=== PATIENT | male | born 1995 | race Caucasian/White ===

== ENCOUNTER → 2017-06-23 | Outpatient (CLI) | payer BC ==
[~2017-06-23] MED LIST: CATHETER FLUSH 10 ML SYR IV PRN; IOHEXOL 350 MG/ML 100 ML (OMNIPAQUE 350) VIAL IV ONE; NS 100 ML (IVPB) BAG IV ONE
--- NOTE | 2017-06-23 15:41 | Diagnostic Imaging Report ---
PROCEDURE: CT neck soft tissue with contrast. TECHNIQUE: Multiple contiguous axial images were obtained through the neck after the administration of contrast. INDICATION: Mass along the mandible on the right side. CONTRAST: 75 mL of Omnipaque 350 was administered intravenously. FINDINGS: There is a right parotid gland lobulated hypodense mass measuring 3.2 x 2 x 1.7 cm. It has low density which could relate to a cystic component. An ultrasound evaluation might help evaluate for such components. The mass appears to be centered in the superficial lobe with no significant extension into the deep lobe of the parotid. The left parotid gland appears unremarkable. The submandibular glands appear normal. The thyroid gland demonstrates very small hypodense lesions in the range of 1-3 mm which could represent tiny colloid cysts. There is unremarkable vascular enhancement in the jugular veins and carotid arteries. There is no suspicious mass in the mucosal pharyngeal space. There is, however, mild hypertrophy of the lymphoid tissue around the oropharynx and adenoids. The cervical chain demonstrates bilateral minimally enlarged lymph nodes at level II of the cervical chain measuring in short axis 1.3 on the left and 1 cm on the right side. These are nonspecific and could be reactive. The lung apices appear normal. The osseous structures and the visualized portions of the paranasal sinuses appear grossly unremarkable. IMPRESSION: A lobulated well defined 3.2 cm right parotid gland hypodense mass is seen. This could relate to a cystic neoplasm of the parotid gland. Correlation with a parotid ultrasound is recommended. Dictated by: Dictated on workstation # [id number]
== END ==
LOC: RAD 14:43
PROVIDERS: ATTEND Otolaryngology Otolaryngology/Facial Plastic Surgery
DX: K11.8 Other diseases of salivary glands (principal)
CPT/HCPCS: 70491

== ENCOUNTER → 2017-09-06 | Outpatient (CLI) | payer BC ==
[~2017-09-06] VITALS: Ht 180.3 cm; Wt 72.6 kg
[~2017-09-06] MED LIST changes: -CATHETER FLUSH 10 ML SYR IV PRN; +DEXT10TA9 PO; -IOHEXOL 350 MG/ML 100 ML (OMNIPAQUE 350) VIAL IV ONE; -NS 100 ML (IVPB) BAG IV ONE
== END ==
LOC: PREOP 09-03 05:40
PROVIDERS: ATTEND Otolaryngology Otolaryngology/Facial Plastic Surgery
DX: Z01.818 Encounter for other preprocedural examination (principal); R22.1 Localized swelling, mass and lump, neck

== ENCOUNTER 2017-09-10 08:46 | Day surgery (SDC) | payer BC ==
[~2017-09-10] VITALS: Ht 180.3 cm; Wt 72.6 kg
[2017-09-10] MEDS: LACTATED RINGERS 1,000 ML IV PRN ×2 (09:15→11:17)
[2017-09-10 09:20] LABS: BASOPHILS % (AUTO) 1 % (0-10); EOSINOPHILS # (AUTO) 0.1 10^3/uL (0.0-0.3); EOSINOPHILS % (AUTO) 2 % (0-10); HEMATOCRIT 46 % (40-54); HEMOGLOBIN 15.9 G/DL (13.3-17.7); LYMPHOCYTES # (AUTO) 2.8 X 10^3 (1.0-4.0); LYMPHOCYTES % (AUTO) 38 % (12-44); MEAN CORPUSCULAR HEMOGLOBIN 32 PG (25-34); MEAN CORPUSCULAR HGB CONC 35 G/DL (32-36); MEAN CORPUSCULAR VOLUME 92 FL (80-99); MEAN PLATELET VOLUME 11.5 FL (7.4-10.4); MONOCYTES # (AUTO) 0.7 X 10^3 (0.0-1.0); MONOCYTES % (AUTO) 9 % (0-12); NEUTROPHILS # (AUTO) 3.8 X 10^3 (1.8-7.8); NEUTROPHILS % (AUTO) 51 % (42-75); PLATELET COUNT 215 10^3/uL (130-400); RED BLOOD COUNT 4.96 10^6/uL (4.35-5.85); RED CELL DISTRIBUTION WIDTH 12.4 % (10.0-14.5); WHITE BLOOD COUNT 7.5 10^3/uL (4.3-11.0)
[2017-09-10 09:31] VITALS: BP 125/65
[2017-09-10 09:36] LABS: BUN/CREATININE RATIO 19; CALCIUM 9.2 MG/DL (8.5-10.1); CARBON DIOXIDE 23 MMOL/L (21-32); CHLORIDE 107 MMOL/L (98-107); CREATININE SERUM 0.88 MG/DL (0.60-1.30); GFR ESTIMATED > 60; GLUCOSE 90 MG/DL (70-105); POTASSIUM 4.6 MMOL/L (3.6-5.0); SODIUM 140 MMOL/L (135-145)
[2017-09-10] MEDS ORDERED: MIDAZOLAM 2 MG/2 ML (VERSED) VIAL IV ONE (10:00)
--- NOTE | 2017-09-10 10:01 | Progress Note-Pre Operative ---
Pre-Operative Progress Note H&P Reviewed The H&P was reviewed, patient examined and no changes noted. Date Seen by Provider: Sep 10, 2017 Time Seen by Provider: : Date H&P Reviewed: Sep 10, 2017 Time H&P Reviewed: : Pre-Operative Diagnosis: Right Parotid MAss THOMAS FRYE MD Sep 10, 2017 10:01 am
[2017-09-10] MEDS ORDERED: LIDOCAINE/EPI 1%-1:200,000 (XYLOCAINE) 10 ML VIAL ONE (10:16)
[2017-09-10] MEDS ORDERED: MUPIROCIN 2% OINT 22 GM (BACTROBAN) TUBE ONE (10:16)
[2017-09-10] MEDS ORDERED: BSS 15 ML ONE (10:16)
[2017-09-10] MEDS ORDERED: NEO/POLY/BACI (NEOSPORIN) OPHTH OINT 3.5 GM ONE (10:16)
[2017-09-10] MEDS ORDERED: DEXAMETHASONE 10 MG/ML (DECADRON) 1 ML VIAL ONE (10:26)
[2017-09-10] MEDS ORDERED: ONDANSETRON 4 MG/2 ML (SDV) Z0FRAN ONE (10:26)
[2017-09-10] MEDS ORDERED: fentaNYL INJECTION 100 MCG/2 ML AMP ONE ×2 (10:26→11:12)
[2017-09-10] MEDS ORDERED: LIDOCAINE PF 2% 5 ML (XYLOCAINE) VIAL ONE (10:26)
[2017-09-10] MEDS ORDERED: proPOfol 200 MG/20 ML (DIPRIVAN) VIAL IV ONE (10:26)
[2017-09-10] MEDS ORDERED: ROCURONIUM 50 MG/5 ML (ZEMURON) VIAL IV ONE (10:26)
[2017-09-10] MEDS ORDERED: MIDAZOLAM 2 MG/2 ML (VERSED) VIAL ONE (10:26)
[2017-09-10] MEDS ORDERED: LIDOCAINE JELLY 2% (XYLOCAINE) 5 ML TUBE ONE (10:31)
[2017-09-10] MEDS ORDERED: SEVOFLURANE (ULTANE) 15 ML INHAL SOLN ONE ×5 (10:31→12:51)
[2017-09-10] MEDS ORDERED: MEPERIDINE (DEMEROL) INJ 50 MG/ML ONE (12:59)
[2017-09-10] MEDS ORDERED: morphine INJ 10 MG/ML 1ML (SYR OR VIAL) ONE (12:59)
[2017-09-10] MEDS ORDERED: ACETAMINOPHEN 325 MG TABLET/CAPLET (TYLENOL) PO PRN (13:00)
[2017-09-10] MEDS ORDERED: D5 1/2 NS W/KCL 20 MEQ/L 1,000 ML IV SCH (13:00)
--- NOTE | 2017-09-10 13:00 | Progress Note-Post Operative ---
Post-Operative Progess Note Surgeon (s)/Chop Saw Operator (s) Surgeon THOMAS FRYE MD Chop Saw Operator n/a Pre-Operative Diagnosis Right Parotid MAss Post-Operative Diagnosis same Post-Op Procedure Note Date of Procedure: Sep 10, 2017 Name of Procedure Performed: Right Parotidectomy with Preservation of the FAcial NErve Description & Findings Description and Findings: n/a Anesthesia Type get Estimated Blood Loss minimal Packing none. Specimen(s) collected/removed right parotid [id number] adenoma THOMAS FRYE MD Sep 10, 2017 1:00 pm
[2017-09-10] MEDS ORDERED: ONDANSETRON 4 MG/2 ML (SDV) Z0FRAN IVP PRN ×2 (13:30→19:15)
[2017-09-10] MEDS ORDERED: HYDROmorphone (DILAUDID) 2 MG/ML VIAL IVP PRN (13:30)
[2017-09-10] MEDS: morphine INJ 10 MG/ML 1ML (SYR OR VIAL) IVP PRN ×2 (13:32→13:36)
[2017-09-10] MEDS: MEPERIDINE (DEMEROL) INJ 50 MG/ML IVP PRN ×2 (13:40→13:50)
[2017-09-10] MEDS: HYDROcodone/APAP 5 MG/325 MG (LORTAB) TAB PO PRN ×2 (15:42→19:57)
[2017-09-10 15:47] VITALS: BP 130/77
--- NOTE | 2017-09-10 16:29 | Progress Note-Standard ---
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
[2017-09-10] MEDS ORDERED: fentaNYL INJECTION 100 MCG/2 ML AMP IVP PRN (19:45)
[2017-09-10 20:00] VITALS: BP 136/66
[2017-09-11] MEDS: HYDROcodone/APAP 5 MG/325 MG (LORTAB) TAB PO PRN ×2 (00:02→05:40)
[2017-09-11 00:53] VITALS: BP 132/62
[2017-09-11 04:00] VITALS: BP 119/56
--- NOTE | 2017-09-11 06:27 | Progress Note-Standard ---
Standard Progress Note Progress Notes/Assess & Plan Date Seen by Provider: Sep 11, 2017 Time Seen by Provider: 06:30 Progress/Assessment & Plan ENT-Jake Doing well post-op mild discomfort Drain functioning-15cc in grenade at this time Face-minimal to naomi weakness of face all branches intact incision-flat and dry will observe tonight diet as adonis pain medicine written plan on drain out in am and t hen home RTC-wednesday for suture removal [id number]'ed Incision flat dry and intact FAcial movements normal will discharge after breakfast Discharge rprescriptions in chart RTC-next wednesday at 10 for suture removal Discahrge instructions reviewed. THOMAS FRYE MD Sep 11, 2017 6:27 am
[2017-09-11 08:00] VITALS: BP 117/58
[2017-09-11 09:30] VITALS: BP 117/58
--- NOTE | 2017-09-11 09:31 | Anesthesia-General Post-Op ---
General Patient Condition Mental Status/LOC: Same as Preop Cardiovascular: Satisfactory Nausea/Vomiting: Absent Respiratory: Satisfactory Pain: Controlled Complications: Absent Post Op Complications Complications None Follow Up Care/Instructions Patient Instructions None needed. Anesthesia/Patient Condition Patient Condition Patient is doing well, no complaints, stable vital signs, no apparent adverse anesthesia problems. No complications reported per nursing. Pt getting ready to be discharged to home. PARIS SHARIF CRNA Sep 11, 2017 09:31
--- OUTSIDE RECORDS SUMMARY | 2017-09-12 08:05 | XMS REPORT | Continuity of Care Document ---
Author Author [facility] Organization [facility] Address Unknown Phone Unavailable Allergies Active Description Code Type Severity Reaction Onset Reported/Identified Relationship to Patient Clinical Status Yes penicillins Drug N/A N/A Medications Medication Packaging Start Date Stop Date Route Dosage Sig ondansetron 09/03/2017 PO 8 mg / 1 tab Problems There is no data. Procedures There is no data. Results Test Result Range COMPREHENSIVE METABOLIC PANEL - 09/03/17 17:15 ALT (SGPT) 17 U/L 10-60 AST (SGOT) 19 U/L 10-42 Albumin 4.8 g/dL 3.2-5.5 Alkaline Phosphatase 73 U/L 42-121 Anion Gap 15 mmol/L NRG BUN 10 mg/dL 6-20 Calcium 9.9 mg/dL 8.5-10.5 Calculated GFR >60.0 mL/min/1.73sq >60 Carbon Dioxide, Total 23 mmol/L 21-31 Chloride 96 mmol/L 101-111 Creatinine 0.7 mg/dL 0.5-1.2 Glucose Level 109 mg/dL 70-100 Potassium 3.7 mmol/L 3.6-5.0 Sodium 134 mmol/L 135-145 Total Bilirubin 0.8 mg/dL 0.2-1.0 Total Protein 8.1 g/dL 6.0-8.0 C-REACTIVE PROTEIN - 09/03/17 17:15 C-Reactive Protein <0.03 mg/dL 0.0-0.5 LIPASE - 09/03/17 17:15 Lipase 12 U/L 8-57 FLU A,B and RSV by PCR - 09/03/17 17:15 Flu A by PCR NEGATIVE NEG Flu B by PCR NEGATIVE NEG RSV BY PCR NEGATIVE NEG Encounters ACCT No. Visit Date/Time Discharge Status Pt. Type Provider Facility Loc./Unit Complaint [id number] 09/03/2017 16:12:00 09/03/2017 20:15:00 DIS Emergency ANKUR CANTU [facility] ER Abdominal Pain
== END 2017-09-11 09:30 | disposition home or self-care (01) ==
LOC: SDC 08:46 → 4TH 14:18 → SDC 09-11 09:30
PROVIDERS: ATTEND Otolaryngology Otolaryngology/Facial Plastic Surgery
DX: C07 Malignant neoplasm of parotid gland (principal); F90.9 Attention-deficit hyperactivity disorder, unspecified type; F41.9 Anxiety disorder, unspecified; Z79.899 Other long term (current) drug therapy
CPT/HCPCS: 36415; 80048; 85025; 87081